=== PATIENT | female | born 1950 | race Caucasian/White ===

== ENCOUNTER 2020-08-12 14:59 | Outpatient (CLI) | payer MEDICARE, BC | END 2020-08-12 15:00 | disposition home or self-care (01) | LOC: TBSIIMAG 14:59 | PROVIDERS: ATTEND Neurological Surgery | DX: M47.26 Other spondylosis with radiculopathy, lumbar region (principal); M48.062 Spinal stenosis, lumbar region with neurogenic claudication | CPT/HCPCS: 72100; 72148 ==

== ENCOUNTER 2020-12-14 01:44 | Inpatient (IN) | payer MEDICARE, BC ==
[2020-12-14] MEDS ORDERED: methylPREDNISolone Sod Succ/PF 125 MG/2 ML VIAL ONE (02:07)
[2020-12-14] MEDS ORDERED: Magnesium 2 GM/50 ML BAG (IN WATER) ONE (02:08)
[2020-12-14] MEDS ORDERED: Albuterol Sulfate 2.5 mg/3 ml Neb ONE ×2 (02:08→16:57)
[2020-12-14 02:40] LABS: #Eosinphils 0.1 thou/uL (0.0-0.7); #Lymphocytes 1.2 thou/uL (1.20-3.40); #Monocytes 0.6 thou/uL (0.11-0.59); #Neutrophils 10.7 thou/uL (1.40-6.50); %Basophils 0.1 % (0.0-1.0); %Eosinophils 0.7 % (0.0-10.0); %Lymphocytes 9.5 % (21.0-51.0); %Neutrophils 84.7 % (42.0-75.0); Hemoglobin 9.3 g/dL (12.0-16.0); Mean Corpuscular HGB CONC 33.8 g/dL (32.0-36.0); Mean Corpuscular Hemoglobin 31.7 pg (27.0-31.0); Mean Corpuscular Volume 93.9 fL (78.0-98.0); Mean Platelet Volume 8.9 fL (7.4-10.4); Platelet Count 232 thou/uL (130-400); RBC Distribution Width 13.2 % (11.5-14.5); Red Blood Cell (RBC) Count 2.95 mill/uL (4.20-5.40); White Blood Cell (WBC) Count 12.6 thou/uL (4.8-10.8)
[2020-12-14 03:00] LABS: ALT (SGPT) 18 U/L (8-55); AST (SGOT) 12 U/L (5-34); Albumin 3.6 g/dL (3.4-4.8); Alkaline Phosphatase 105 U/L (40-110); Anion Gap 15 mmol/L (10-20); BUN (Urea Nitrogen) 94 mg/dL (9.8-20.1); Bilirubin, Total 0.5 mg/dL (0.2-1.2); Calc. Creatinine Clearance 0 mL/min (70-130); Carbon Dioxide 17 mmol/L (23-31); Chloride 108 mmol/L (98-107); Globulin 3.5 g/dL (2.4-3.5); Glucose 193 mg/dL (83-110); Potassium 5.8 mmol/L (3.5-5.1); Protein, Total 7.1 g/dL (5.8-8.1); Sodium 134 mmol/L (136-145)
[2020-12-14 03:02] LABS: Actual Bicarbonate (HCO3a) 14.9 mEq/L (22-28); Analyzer IN Cardio ER; Base Excess (BEa) -11.5 mEq/L (-2.0 to +3.0); CO2 Tension 35.6 mmHg (35.0-45.0); Calcium, Ionized (arterial) 1.18 mmol/L (1.12-1.30); Carboxyhemoglobin (COHb) 0.3 gm% (0.0-3.0); Hemoglobin (Hb) 9.5 g/dL (12.0-16.0); O2 Tension (PaO2), arterial 97.1 mmHg (> 70.0); Potassium - ABG Lab 5.41 mmol/L (3.70-5.30)
[2020-12-14 03:14] LABS: Puncture Site LRA; pH, Arterial 7.24 (7.35-7.45)
[2020-12-14 03:19] LABS: Bacteria/HPF None Seen HPF (None Seen); Bilirubin Negative (Negative); Blood, Urine Negative (Negative); Clarity Turbid (Clear); Glucose, Urine (Dipstick) Normal (Negative); Ketone, Urine Negative (Negative); Leukocyte Negative Leu/uL (Negative); Nitrite Negative (Negative); Protein, Urine (Dipstick) 50 mg/dL (Neg-Trace); RBC/HPF 0-3 HPF (0-3); Specific Gravity, Urine 1.009 (1.002-1.036); Squamous Epithelial 0-3 HPF (0-3); Urobilinogen Normal mg/dL (Less than 2)
[2020-12-14 03:58] LABS: SARS-CoV-2 NAA Rapid Test Not Detected (NotDetected)
[2020-12-14 05:42] LABS: Troponin I 0.013 ng/mL (< 0.028)
[2020-12-14] MEDS ORDERED: Furosemide 40 MG/4 ML VIAL ONE (06:36)
[2020-12-14] MEDS ORDERED: Furosemide 100 MG in Sodium Chloride 0.9% 100 ML IVPB SCH (08:45)
[2020-12-14] MEDS ORDERED: Insulin Regular 300 UNITS/3 ML VIAL IVP SCH (08:45)
[2020-12-14] MEDS ORDERED: Sodium Bicarb 50 MEQ/50 ML Abboject 8.4% SYRINGE IVP SCH (08:45)
[2020-12-14] MEDS ORDERED: Dextrose 50% Abboject 50 ML SYRINGE SLOW IVP SCH (08:45)
[2020-12-14] MEDS ORDERED: Albuterol Sulfate 1.25 MG/3 ML NEB NEB SCH (08:45)
[2020-12-14 09:00] LABS: Anion Gap 18 mmol/L (10-20); BUN (Urea Nitrogen) 98 mg/dL (9.8-20.1); Calc. Creatinine Clearance 0 mL/min (70-130); Calcium 8.8 mg/dL (7.8-10.44); Carbon Dioxide 14 mmol/L (23-31); Chloride 108 mmol/L (98-107); Glucose 320 mg/dL (83-110); Potassium 5.7 mmol/L (3.5-5.1); Sodium 134 mmol/L (136-145)
[2020-12-14] MEDS ORDERED: Apixaban 5 MG TAB PO SCH (09:00)
[2020-12-14] MEDS ORDERED: Morphine 2 MG/ML VIAL SLOW IVP PRN (09:06)
[2020-12-14] MEDS ORDERED: Acetaminophen 650 MG/20.3 ML UDCUP PO PRN (09:11)
[2020-12-14] MEDS ORDERED: clonazePAM 1 MG TAB ONE ×2 (10:55→16:33)
[2020-12-14] MEDS ORDERED: Sodium Bicarb 50 MEQ/50 ML Abboject 8.4% SYRINGE ONE (10:56)
[2020-12-14] MEDS ORDERED: Insulin Regular 300 UNITS/3 ML VIAL ONE (10:56)
[2020-12-14] MEDS ORDERED: Dextrose 50% Abboject 50 ML SYRINGE ONE (10:56)
[2020-12-14] MEDS ORDERED: Folic Acid 1 MG TAB ONE (10:56)
[2020-12-14] MEDS: Folic Acid 1 MG TAB PO SCH (11:51)
[2020-12-14] MEDS: Cyanocobalamin (Vitamin B-12) 1,000 MCG TAB PO SCH (11:52)
[2020-12-14] MEDS: clonazePAM 1 MG TAB PO SCH ×3 (11:52→20:53)
[2020-12-14] MEDS ORDERED: Morphine 2 MG/ML VIAL ONE (11:56)
[2020-12-14] MEDS: Fluticasone Propionate Nasal Spray 16 gm Bottle NASAL SCH (12:11)
[2020-12-14 15:07] LABS: Anion Gap 17 mmol/L (10-20); BUN (Urea Nitrogen) 99 mg/dL (9.8-20.1); Calc. Creatinine Clearance 0 mL/min (70-130); Carbon Dioxide 15 mmol/L (23-31); Chloride 106 mmol/L (98-107); Glucose 453 mg/dL (83-110); Potassium 5.4 mmol/L (3.5-5.1); Sodium 133 mmol/L (136-145)
[2020-12-14] MEDS ORDERED: Albuterol Sulfate 2.5 mg/3 ml Neb NEB SCH (15:15)
[2020-12-14] MEDS ORDERED: Acetaminophen 325 MG TAB PO PRN (16:16)
[2020-12-14] MEDS ORDERED: Dextrose 5% in Water 1,000 ML IV PRN (16:16)
[2020-12-14] MEDS ORDERED: Dextrose 50% Abboject 50 ML SYRINGE SLOW IVP PRN (16:16)
[2020-12-14] MEDS ORDERED: Albuterol Sulfate 2.5 mg/0.5 ml Neb ONE ×2 (16:34→16:56)
[2020-12-14 16:58] LABS: HBSAg Index 0.38 S/CO (0-0.99); Hep B Surf Ag Non-Reactive S/CO (NonReactive); Hep C IgG Ab Non-Reactive (NonReactive); Hep C Index 0.18 S/CO (0-0.79)
[2020-12-14] MEDS ORDERED: Tuberculin PPD 0.1 ML VIAL I-DERMAL SCH (17:00)
[2020-12-14 17:03] LABS: Hep B Core Total Index 10.31 S/CO (0-0.79)
[2020-12-14 17:04] LABS: Hep B Core Total Ab Reactive (NonReactive)
[2020-12-14 17:48] LABS: HBSAB Concentration 9.76 mIU/mL
[2020-12-14 17:53] LABS: Hep B Surf AB EQUIVOCAL (NonReactive)
[2020-12-14 18:29] VITALS: BMI 35.6
[2020-12-14] MEDS: Dronedarone HCl 400 MG TAB PO SCH (18:35)
[2020-12-14] MEDS: Atorvastatin Calcium 40 MG TAB PO SCH (20:53)
[2020-12-14] MEDS: HumaLOG 300 UNITS/3 ML VIAL SC PRN (21:25)
[2020-12-14 21:35] LABS: Anion Gap 16 mmol/L (10-20); BUN (Urea Nitrogen) 99 mg/dL (9.8-20.1); Calc. Creatinine Clearance 18 mL/min (70-130); Calcium 8.7 mg/dL (7.8-10.44); Carbon Dioxide 18 mmol/L (23-31); Chloride 105 mmol/L (98-107); Glucose 423 mg/dL (83-110); Potassium 4.4 mmol/L (3.5-5.1); Sodium 135 mmol/L (136-145)
[2020-12-15] MEDS: Furosemide 100 MG in Sodium Chloride 0.9% 100 ML IVPB SCH (01:53)
[2020-12-15 04:58] LABS: #Lymphocytes 0.9 thou/uL (1.20-3.40); #Monocytes 0.5 thou/uL (0.11-0.59); #Neutrophils 5.7 thou/uL (1.40-6.50); %Basophils 0.2 % (0.0-1.0); %Eosinophils 0.6 % (0.0-10.0); %Lymphocytes 12.4 % (21.0-51.0); %Monocytes 7.6 % (0.0-10.0); %Neutrophils 79.3 % (42.0-75.0); Hemoglobin 7.8 g/dL (12.0-16.0); Mean Corpuscular HGB CONC 32.5 g/dL (32.0-36.0); Mean Corpuscular Hemoglobin 29.9 pg (27.0-31.0); Mean Corpuscular Volume 92.2 fL (78.0-98.0); Platelet Count 210 thou/uL (130-400); RBC Distribution Width 12.9 % (11.5-14.5); White Blood Cell (WBC) Count 7.2 thou/uL (4.8-10.8)
[2020-12-15 05:17] LABS: Anion Gap 15 mmol/L (10-20); BUN (Urea Nitrogen) 97 mg/dL (9.8-20.1); Calc. Creatinine Clearance 20 mL/min (70-130); Calcium 8.6 mg/dL (7.8-10.44); Carbon Dioxide 20 mmol/L (23-31); Chloride 105 mmol/L (98-107); Glucose 257 mg/dL (83-110); Potassium 3.5 mmol/L (3.5-5.1); Sodium 136 mmol/L (136-145)
[2020-12-15] MEDS: Levothyroxine Sodium 50 MCG TAB PO SCH (05:50)
[2020-12-15] MEDS: HumaLOG 300 UNITS/3 ML VIAL SC PRN ×2 (06:18→22:25)
[2020-12-15] MEDS ORDERED: Heparin 10,000 UNITS/ 10 ML VIAL ONE ×3 (09:09→13:07)
[2020-12-15] MEDS: Folic Acid 1 MG TAB PO SCH (09:29)
[2020-12-15] MEDS: Cyanocobalamin (Vitamin B-12) 1,000 MCG TAB PO SCH (09:29)
[2020-12-15] MEDS: Dronedarone HCl 400 MG TAB PO SCH ×2 (09:29→18:43)
[2020-12-15] MEDS: Cholecalciferol 1,000 UNITS (25 MCG) TAB PO SCH (09:29)
[2020-12-15] MEDS: Fluticasone Propionate Nasal Spray 16 gm Bottle NASAL SCH (09:30)
[2020-12-15] MEDS: clonazePAM 1 MG TAB PO SCH ×3 (09:30→22:20)
[2020-12-15] MEDS: Propranolol 40 MG TAB PO SCH (09:33)
[2020-12-15] MEDS ORDERED: CEFAZOLIN 2 GM in Premix Bag 1 BAG IVPB SCH ×3 (09:45→13:15)
[2020-12-15] MEDS ORDERED: Fentanyl 100 MCG/2 ML VIAL ONE (11:44)
[2020-12-15] MEDS ORDERED: Propofol 500 MG/50 ML VIAL ONE (11:44)
[2020-12-15] MEDS ORDERED: Phenylephrine 10 MG/ML VIAL ONE (11:44)
[2020-12-15] MEDS ORDERED: Sodium Chloride 0.9% 20 ML ONE (11:52)
[2020-12-15] MEDS ORDERED: Lidocaine 2% PF 5 ML VIAL ONE (11:52)
[2020-12-15] MEDS ORDERED: Bupivacaine PF 0.5% 30 ML VIAL ONE (11:52)
[2020-12-15] MEDS ORDERED: EPINEPHrine 1 MG/ML AMP ONE (11:52)
[2020-12-15] MEDS ORDERED: Lidocaine 1% PF 5 ML VIAL ONE (13:02)
[2020-12-15] MEDS ORDERED: Promethazine HCl 25 MG/ML VIAL IM PRN (13:24)
[2020-12-15] MEDS ORDERED: Promethazine HCl 25 MG/ML VIAL IVPB PRN (13:24)
[2020-12-15] MEDS ORDERED: Ondansetron HCl/PF 4 MG/2 ML Vial IVP PRN (13:24)
[2020-12-15] MEDS: Atorvastatin Calcium 40 MG TAB PO SCH (22:19)
[2020-12-16] MEDS: Furosemide 100 MG in Sodium Chloride 0.9% 100 ML IVPB SCH (00:03)
[2020-12-16 05:22] LABS: #Eosinphils 0.2 thou/uL (0.0-0.7); #Lymphocytes 1.7 thou/uL (1.20-3.40); #Monocytes 0.6 thou/uL (0.11-0.59); #Neutrophils 4.8 thou/uL (1.40-6.50); %Basophils 0.3 % (0.0-1.0); %Eosinophils 2.6 % (0.0-10.0); %Lymphocytes 23.3 % (21.0-51.0); %Monocytes 8.6 % (0.0-10.0); %Neutrophils 65.1 % (42.0-75.0); Hemoglobin 8.5 g/dL (12.0-16.0); Mean Corpuscular HGB CONC 34.7 g/dL (32.0-36.0); Mean Corpuscular Hemoglobin 31.8 pg (27.0-31.0); Mean Corpuscular Volume 91.6 fL (78.0-98.0); Mean Platelet Volume 8.8 fL (7.4-10.4); Platelet Count 222 thou/uL (130-400); RBC Distribution Width 12.9 % (11.5-14.5); Red Blood Cell (RBC) Count 2.68 mill/uL (4.20-5.40); White Blood Cell (WBC) Count 7.3 thou/uL (4.8-10.8)
[2020-12-16 05:39] LABS: Anion Gap 16 mmol/L (10-20); BUN (Urea Nitrogen) 84 mg/dL (9.8-20.1); Calc. Creatinine Clearance 22 mL/min (70-130); Calcium 8.3 mg/dL (7.8-10.44); Carbon Dioxide 23 mmol/L (23-31); Chloride 104 mmol/L (98-107); Glucose 190 mg/dL (83-110); Potassium 3.5 mmol/L (3.5-5.1); Sodium 139 mmol/L (136-145)
[2020-12-16] MEDS: Levothyroxine Sodium 50 MCG TAB PO SCH (05:55)
[2020-12-16] MEDS: Cholecalciferol 1,000 UNITS (25 MCG) TAB PO SCH (09:59)
[2020-12-16] MEDS: Dronedarone HCl 400 MG TAB PO SCH ×2 (09:59→17:34)
[2020-12-16] MEDS: clonazePAM 1 MG TAB PO SCH ×3 (09:59→20:42)
[2020-12-16] MEDS: Cyanocobalamin (Vitamin B-12) 1,000 MCG TAB PO SCH (10:00)
[2020-12-16] MEDS: Folic Acid 1 MG TAB PO SCH (10:00)
[2020-12-16] MEDS: Propranolol 40 MG TAB PO SCH (10:00)
[2020-12-16] MEDS: Fluticasone Propionate Nasal Spray 16 gm Bottle NASAL SCH (10:06)
[2020-12-16] MEDS ORDERED: Nystatin Powder 15 GM BOT TOP PRN (11:28)
[2020-12-16] MEDS: HumaLOG 300 UNITS/3 ML VIAL SC PRN ×3 (11:41→20:42)
[2020-12-16] MEDS ORDERED: READ PPD TEST SITE PO SCH (17:00)
[2020-12-16] MEDS: Atorvastatin Calcium 40 MG TAB PO SCH (20:42)
[2020-12-17 05:09] LABS: #Basophils 0.1 thou/uL (0.0-0.2); #Eosinphils 0.2 thou/uL (0.0-0.7); #Lymphocytes 1.9 thou/uL (1.20-3.40); #Monocytes 0.7 thou/uL (0.11-0.59); #Neutrophils 4.1 thou/uL (1.40-6.50); %Basophils 0.8 % (0.0-1.0); %Eosinophils 2.6 % (0.0-10.0); %Lymphocytes 27.3 % (21.0-51.0); %Monocytes 9.6 % (0.0-10.0); %Neutrophils 59.8 % (42.0-75.0); Hemoglobin 8.3 g/dL (12.0-16.0); Mean Corpuscular HGB CONC 33.2 g/dL (32.0-36.0); Mean Corpuscular Hemoglobin 30.8 pg (27.0-31.0); Mean Corpuscular Volume 92.8 fL (78.0-98.0); Mean Platelet Volume 8.4 fL (7.4-10.4); Platelet Count 236 thou/uL (130-400); RBC Distribution Width 12.9 % (11.5-14.5); Red Blood Cell (RBC) Count 2.69 mill/uL (4.20-5.40); White Blood Cell (WBC) Count 6.9 thou/uL (4.8-10.8)
[2020-12-17 05:28] LABS: Anion Gap 15 mmol/L (10-20); BUN (Urea Nitrogen) 87 mg/dL (9.8-20.1); Calc. Creatinine Clearance 20 mL/min (70-130); Calcium 8.3 mg/dL (7.8-10.44); Carbon Dioxide 25 mmol/L (23-31); Chloride 103 mmol/L (98-107); Glucose 132 mg/dL (83-110); Potassium 3.1 mmol/L (3.5-5.1); Sodium 140 mmol/L (136-145)
[2020-12-17] MEDS: Levothyroxine Sodium 50 MCG TAB PO SCH (06:12)
[2020-12-17] MEDS ORDERED: Heparin 10,000 UNITS/ 10 ML VIAL ONE (09:15)
[2020-12-17] MEDS: Lantus 1000 UNITS/10 ML VIAL SC SCH (10:37)
[2020-12-17] MEDS: clonazePAM 1 MG TAB PO SCH ×3 (10:56→21:32)
[2020-12-17] MEDS: Folic Acid 1 MG TAB PO SCH (10:56)
[2020-12-17] MEDS: Cholecalciferol 1,000 UNITS (25 MCG) TAB PO SCH (10:59)
[2020-12-17] MEDS: Cyanocobalamin (Vitamin B-12) 1,000 MCG TAB PO SCH (11:02)
[2020-12-17] MEDS: Propranolol 40 MG TAB PO SCH (11:02)
[2020-12-17] MEDS: Fluticasone Propionate Nasal Spray 16 gm Bottle NASAL SCH (11:02)
[2020-12-17] MEDS: Dronedarone HCl 400 MG TAB PO SCH ×2 (11:03→17:58)
[2020-12-17] MEDS ORDERED: Protamine Sulfate 50 MG/5 ML VIAL ONE (16:26)
[2020-12-17] MEDS ORDERED: Lidocaine 1% w/Epinephrine 1:100K 20 ML VIAL ONE (16:26)
[2020-12-17] MEDS ORDERED: Heparin 5,000 UNITS/ML VIAL ONE (16:26)
[2020-12-17] MEDS ORDERED: Bupivacaine PF 0.5% 30 ML VIAL ONE ×2 (16:26)
[2020-12-17] MEDS ORDERED: PROPOFOL 200 MG/20 ML VIAL ONE (17:03)
[2020-12-17] MEDS ORDERED: traMADol HCl 50 MG TAB PO PRN (18:12)
[2020-12-17] MEDS: HumaLOG 300 UNITS/3 ML VIAL SC PRN (21:32)
[2020-12-17] MEDS: Atorvastatin Calcium 40 MG TAB PO SCH (21:32)
[2020-12-18 05:08] LABS: #Eosinphils 0.2 thou/uL (0.0-0.7); #Lymphocytes 1.8 thou/uL (1.20-3.40); #Monocytes 0.7 thou/uL (0.11-0.59); #Neutrophils 6.3 thou/uL (1.40-6.50); %Basophils 0.2 % (0.0-1.0); %Eosinophils 2.7 % (0.0-10.0); %Lymphocytes 20.2 % (21.0-51.0); %Monocytes 7.4 % (0.0-10.0); %Neutrophils 69.6 % (42.0-75.0); Hemoglobin 9.2 g/dL (12.0-16.0); Mean Corpuscular Hemoglobin 30.9 pg (27.0-31.0); Mean Corpuscular Volume 90.9 fL (78.0-98.0); Mean Platelet Volume 8.1 fL (7.4-10.4); Platelet Count 231 thou/uL (130-400); RBC Distribution Width 12.6 % (11.5-14.5); Red Blood Cell (RBC) Count 2.96 mill/uL (4.20-5.40); White Blood Cell (WBC) Count 9.1 thou/uL (4.8-10.8)
[2020-12-18] MEDS: Levothyroxine Sodium 50 MCG TAB PO SCH (05:25)
[2020-12-18 05:31] LABS: Anion Gap 12 mmol/L (10-20); BUN (Urea Nitrogen) 46 mg/dL (9.8-20.1); Calc. Creatinine Clearance 26 mL/min (70-130); Calcium 8.6 mg/dL (7.8-10.44); Carbon Dioxide 28 mmol/L (23-31); Chloride 102 mmol/L (98-107); Glucose 166 mg/dL (83-110); Potassium 3.3 mmol/L (3.5-5.1); Sodium 139 mmol/L (136-145)
[2020-12-18] MEDS: clonazePAM 1 MG TAB PO SCH (09:17)
[2020-12-18] MEDS: Cyanocobalamin (Vitamin B-12) 1,000 MCG TAB PO SCH (09:18)
[2020-12-18] MEDS: Folic Acid 1 MG TAB PO SCH (09:18)
[2020-12-18] MEDS: Propranolol 40 MG TAB PO SCH (09:18)
[2020-12-18] MEDS: Lantus 1000 UNITS/10 ML VIAL SC SCH (09:19)
[2020-12-18] MEDS: Dronedarone HCl 400 MG TAB PO SCH (09:20)
[2020-12-18] MEDS: Cholecalciferol 1,000 UNITS (25 MCG) TAB PO SCH (09:20)
[2020-12-18] MEDS: Fluticasone Propionate Nasal Spray 16 gm Bottle NASAL SCH (09:21)
[2020-12-18 11:42] VITALS: TEMP 98.3
[2020-12-18 11:58] VITALS: BP 135/53
[2020-12-18] MEDS ORDERED: Potassium Chloride 20 MEQ TAB PO SCH (12:15)
[2020-12-18] MEDS: HumaLOG 300 UNITS/3 ML VIAL SC PRN (12:32)
== END 2020-12-18 14:20 | DRG 673 ==
LOC: ERS 01:44 → ERHOLD 04:28 → OBSVTOIN 16:16 → 2SE 18:05
PROVIDERS: ADMIT Internal Medicine; ATTEND Internal Medicine
PROC: 0JH60XZ Insertion of Tunneled Vascular Access Device into Chest Subcutaneous Tissue and Fascia, Open Approach (ICD-10-PCS; principal; 2020-12-15)
PROC: 02HV33Z Insertion of Infusion Device into Superior Vena Cava, Percutaneous Approach (ICD-10-PCS; 2020-12-15)
PROC: B5181ZA Fluoroscopy of Superior Vena Cava using Low Osmolar Contrast, Guidance (ICD-10-PCS; 2020-12-15)
PROC: B548ZZA Ultrasonography of Superior Vena Cava, Guidance (ICD-10-PCS; 2020-12-15)
PROC: 031C0ZF Bypass Left Radial Artery to Lower Arm Vein, Open Approach (ICD-10-PCS; 2020-12-17)
PROC: 5A1D70Z Performance of Urinary Filtration, Intermittent, Less than 6 Hours Per Day (ICD-10-PCS; 2020-12-17)
DX: N17.9 Acute kidney failure, unspecified (principal); J96.01 Acute respiratory failure with hypoxia; E87.2 Acidosis; I48.20 Chronic atrial fibrillation, unspecified; I12.0 Hypertensive chronic kidney disease with stage 5 chronic kidney disease or end stage renal disease; E87.1 Hypo-osmolality and hyponatremia; E78.5 Hyperlipidemia, unspecified; E87.70 Fluid overload, unspecified; E87.5 Hyperkalemia; E11.69 Type 2 diabetes mellitus with other specified complication; N18.6 End stage renal disease; G89.29 Other chronic pain; E11.22 Type 2 diabetes mellitus with diabetic chronic kidney disease; G25.71 Drug induced akathisia; F32.9 Major depressive disorder, single episode, unspecified; Z20.822 Contact with and (suspected) exposure to COVID-19; E66.01 Morbid (severe) obesity due to excess calories; E87.6 Hypokalemia; Z90.49 Acquired absence of other specified parts of digestive tract; Z98.1 Arthrodesis status; Z98.49 Cataract extraction status, unspecified eye; Z88.8 Allergy status to other drugs, medicaments and biological substances; Z68.35 Body mass index [BMI] 35.0-35.9, adult; Z99.2 Dependence on renal dialysis; Z79.01 Long term (current) use of anticoagulants
CPT/HCPCS: 36415; 36416; 36600; 51701; 71045; 80048; 80053; 81003; 81015; 82805; 83605; 83880; 84484; 85025; 86580; 86704; 86706; 86803; 87040; 87340; 93005; 93306; 93970; 94660; 96365; 96367; 96375; C1751; C1752; G0378; J0171; J0690; J1642; J1644; J1815; J1940; J1956; J2001; J2270; J2370; J2704; J2720; J2930; J3010; J3475; J3490; J7611; J7620; S0020; U0002; U0005

== ENCOUNTER 2021-04-17 20:10 | Inpatient (IN) | payer MEDICARE, BC ==
[2021-04-17] MEDS ORDERED: Dextrose 50% Abboject 50 ML SYRINGE ONE (20:18)
[2021-04-17 20:43] LABS: Actual Bicarbonate (HCO3a) 25.7 mEq/L (22-28); Analyzer IN Cardio ER; Base Excess (BEa) 1.7 mEq/L (-2.0 to +3.0); CO2 Tension 38.6 mmHg (35.0-45.0); Calcium, Ionized (arterial) 1.11 mmol/L (1.12-1.30); Carboxyhemoglobin (COHb) 0.4 gm% (0.0-3.0); Hemoglobin (Hb) 12.2 g/dL (12.0-16.0); O2 Tension (PaO2), arterial 169.5 mmHg (> 70.0); Potassium - ABG Lab 4.57 mmol/L (3.70-5.30); pH, Arterial 7.44 (7.35-7.45)
[2021-04-17 20:47] LABS: Puncture Site RRA
[2021-04-17 21:24] LABS: #Eosinphils 0.1 thou/uL (0.0-0.7); #Monocytes 0.4 thou/uL (0.11-0.59); #Neutrophils 5.5 thou/uL (1.40-6.50); %Basophils 0.3 % (0.0-1.0); %Eosinophils 1.4 % (0.0-10.0); %Lymphocytes 14.4 % (21.0-51.0); %Monocytes 5.6 % (0.0-10.0); %Neutrophils 78.3 % (42.0-75.0); Hemoglobin 11.5 g/dL (12.0-16.0); Mean Corpuscular HGB CONC 32.2 g/dL (32.0-36.0); Mean Corpuscular Hemoglobin 31.5 pg (27.0-31.0); Mean Corpuscular Volume 97.6 fL (78.0-98.0); Mean Platelet Volume 8.7 fL (7.4-10.4); Platelet Count 167 thou/uL (130-400); RBC Distribution Width 15.1 % (11.5-14.5); Red Blood Cell (RBC) Count 3.65 mill/uL (4.20-5.40); White Blood Cell (WBC) Count 7.1 thou/uL (4.8-10.8)
[2021-04-17 22:09] LABS: ALT (SGPT) 29 U/L (8-55); AST (SGOT) 29 U/L (5-34); Albumin 3.2 g/dL (3.4-4.8); Alkaline Phosphatase 142 U/L (40-110); Anion Gap 16 mmol/L (10-20); BUN (Urea Nitrogen) 35 mg/dL (9.8-20.1); Bilirubin, Total 0.8 mg/dL (0.2-1.2); Calc. Creatinine Clearance 0 mL/min (70-130); Calcium 8.7 mg/dL (7.8-10.44); Carbon Dioxide 26 mmol/L (23-31); Chloride 102 mmol/L (98-107); Globulin 3.4 g/dL (2.4-3.5); Glucose 312 mg/dL (83-110); Potassium 4.7 mmol/L (3.5-5.1); Protein, Total 6.6 g/dL (5.8-8.1); Sodium 139 mmol/L (136-145)
[2021-04-18] MEDS ORDERED: Ondansetron PF 4 MG/2 ML Vial IVP PRN (02:00)
[2021-04-18] MEDS ORDERED: Ondansetron ODT 4 MG TAB SL PRN (02:00)
[2021-04-18] MEDS ORDERED: Acetaminophen 325 MG TAB PO PRN (02:00)
[2021-04-18 02:32] VITALS: BMI 33.0
[2021-04-18] MEDS ORDERED: HumaLOG 300 UNITS/3 ML VIAL SC PRN (03:51)
[2021-04-18] MEDS ORDERED: Dextrose 5% in Water 1,000 ML IV PRN (03:51)
[2021-04-18] MEDS ORDERED: Dextrose 50% Abboject 50 ML SYRINGE SLOW IVP PRN (03:51)
[2021-04-18] MEDS ORDERED: Heparin 10,000 UNITS/ 10 ML VIAL ONE (09:22)
[2021-04-18 13:15] LABS: HBSAg Index 0.25 S/CO (0-0.99); Hep B Surf Ag Non-Reactive S/CO (NonReactive)
[2021-04-18 14:00] LABS: HBSAB Concentration 8.93 mIU/mL
[2021-04-18 14:01] LABS: Hep B Surf AB EQUIVOCAL (NonReactive)
[2021-04-18 18:17] LABS: SARS-CoV-2 PCR by NAA Not Detected (NotDetected)
[2021-04-18] MEDS ORDERED: clonazePAM 1 MG TAB PO SCH (21:00)
[2021-04-18] MEDS: Apixaban 5 MG TAB PO SCH (21:53)
[2021-04-19 04:27] LABS: Anion Gap 11 mmol/L (10-20); BUN (Urea Nitrogen) 16 mg/dL (9.8-20.1); Calc. Creatinine Clearance 36 mL/min (70-130); Calcium 8.6 mg/dL (7.8-10.44); Carbon Dioxide 30 mmol/L (23-31); Chloride 99 mmol/L (98-107); Glucose 123 mg/dL (83-110); Potassium 4.4 mmol/L (3.5-5.1); Sodium 136 mmol/L (136-145)
[2021-04-19] MEDS ORDERED: Non-Formulary Item 1 EACH (Albuterol Sulfate [Albuterol Sulfate Hfa] 8.5 GM Hfa.Aer.Ad) IH PRN (07:22)
[2021-04-19] MEDS ORDERED: Albuterol 200 PUFF (6.7GM INHALER) INH PRN (07:49)
[2021-04-19 10:57] LABS: Mean Corpuscular HGB CONC 32.4 g/dL (32.0-36.0); Mean Corpuscular Hemoglobin 31.3 pg (27.0-31.0); Mean Corpuscular Volume 96.9 fL (78.0-98.0); RBC Distribution Width 14.7 % (11.5-14.5); Red Blood Cell (RBC) Count 3.52 mill/uL (4.20-5.40)
[2021-04-19 11:23] LABS: Anisocytosis SLIGHT = 6-15 cells (100X) (0-5/hpf); Lymphocytes 32 % (21-51); MDiff Complete? YES; Mean Platelet Volume 8.6 fL (7.4-10.4); Monocytes 2 % (0-10); Neutrophil 66 % (42-75); Platelet Count 159 thou/uL (130-400); Platelet Morphology Comment Appears Adequate; Polychromasia SLIGHT = 2-3 cells (100X) (0-2/hpf); White Blood Cell (WBC) Count 4.1 thou/uL (4.8-10.8)
[2021-04-19] MEDS: Dronedarone HCl 400 MG TAB PO SCH ×2 (14:42→17:02)
[2021-04-19] MEDS: Apixaban 5 MG TAB PO SCH ×2 (14:43→20:46)
[2021-04-19] MEDS: Cholecalciferol 1,000 UNITS (25 MCG) TAB PO SCH (14:43)
[2021-04-19] MEDS: Cyanocobalamin (Vitamin B-12) 1,000 MCG TAB PO SCH (14:44)
[2021-04-19] MEDS: Folic Acid 1 MG TAB PO SCH (14:44)
[2021-04-19] MEDS: clonazePAM 1 MG TAB PO PRN (17:06)
[2021-04-19] MEDS: HumaLOG 300 UNITS/3 ML VIAL SC PRN (17:31)
[2021-04-19] MEDS ORDERED: Rosuvastatin 20 MG TAB PO SCH (21:00)
[2021-04-20] MEDS: clonazePAM 1 MG TAB PO PRN (01:05)
[2021-04-20] MEDS ORDERED: Levothyroxine Sodium 50 MCG TAB PO SCH (06:00)
[2021-04-20] MEDS ORDERED: Propranolol 40 MG TAB PO SCH (09:00)
[2021-04-20] MEDS ORDERED: Propranolol HCl 20 MG TAB PO SCH (09:00)
[2021-04-20] MEDS ORDERED: Heparin 10,000 UNITS/ 10 ML VIAL ONE (09:15)
[2021-04-20] MEDS: Dronedarone HCl 400 MG TAB PO SCH ×2 (11:44→17:26)
[2021-04-20] MEDS: Folic Acid 1 MG TAB PO SCH (11:56)
[2021-04-20] MEDS: Cholecalciferol 1,000 UNITS (25 MCG) TAB PO SCH (11:56)
[2021-04-20] MEDS: Apixaban 5 MG TAB PO SCH (11:56)
[2021-04-20] MEDS: Cyanocobalamin (Vitamin B-12) 1,000 MCG TAB PO SCH (11:56)
[2021-04-20 15:46] VITALS: BP 115/82; TEMP 97.7
[2021-04-20] MEDS: HumaLOG 300 UNITS/3 ML VIAL SC PRN (17:24)
[2021-04-20] MEDS ORDERED: Non-Formulary Item 1 EACH (Atorvastatin Calcium [Atorvastatin Calcium] 80 MG Tablet) PO SCH (21:00)
[2021-04-20] MEDS ORDERED: Atorvastatin Calcium 40 MG TAB PO SCH (21:00)
== END 2021-04-20 18:05 | disposition home or self-care (01) | DRG 640 ==
LOC: ERS 20:10 → 2NO 04-18 00:47
PROVIDERS: ADMIT Student in an Organized Health Care Education/Training Program; ATTEND Internal Medicine
PROC: 5A1D70Z Performance of Urinary Filtration, Intermittent, Less than 6 Hours Per Day (ICD-10-PCS; principal; 2021-04-18)
PROC: 5A09357 Assistance with Respiratory Ventilation, Less than 24 Consecutive Hours, Continuous Positive Airway Pressure (ICD-10-PCS; 2021-04-18)
DX: E87.70 Fluid overload, unspecified (principal); Z20.822 Contact with and (suspected) exposure to COVID-19; N18.6 End stage renal disease; J96.01 Acute respiratory failure with hypoxia; I12.0 Hypertensive chronic kidney disease with stage 5 chronic kidney disease or end stage renal disease; I48.20 Chronic atrial fibrillation, unspecified; E11.22 Type 2 diabetes mellitus with diabetic chronic kidney disease; E03.9 Hypothyroidism, unspecified; E78.5 Hyperlipidemia, unspecified; J45.909 Unspecified asthma, uncomplicated; R25.1 Tremor, unspecified; Z99.2 Dependence on renal dialysis; Z88.8 Allergy status to other drugs, medicaments and biological substances; Z79.890 Hormone replacement therapy; Z98.49 Cataract extraction status, unspecified eye; Z90.49 Acquired absence of other specified parts of digestive tract; Z79.51 Long term (current) use of inhaled steroids; Z79.01 Long term (current) use of anticoagulants; Z79.4 Long term (current) use of insulin; Z98.890 Other specified postprocedural states
CPT/HCPCS: 36415; 36416; 36600; 71045; 80048; 80053; 82805; 83880; 84484; 85025; 86706; 87340; 90935; 93005; 94660; 96374; G0257; J1644; J1815; U0003; U0005

== ENCOUNTER 2021-05-25 12:25 | Emergency (ER) | payer OTHER, MEDICARE, BC | END 2021-05-25 16:25 | disposition home or self-care (01) | LOC: ERS 12:25 | DX: S09.90XA Unspecified injury of head, initial encounter (principal); S05.11XA Contusion of eyeball and orbital tissues, right eye, initial encounter; E11.9 Type 2 diabetes mellitus without complications; E03.9 Hypothyroidism, unspecified; E78.5 Hyperlipidemia, unspecified; J45.909 Unspecified asthma, uncomplicated; I12.0 Hypertensive chronic kidney disease with stage 5 chronic kidney disease or end stage renal disease; N18.6 End stage renal disease; W01.0XXA Fall on same level from slipping, tripping and stumbling without subsequent striking against object, initial encounter | CPT/HCPCS: 70450; 70486; 72125 ==

== ENCOUNTER 2021-07-16 12:08 | Outpatient (CLI) | payer MEDICARE, BC | END 2021-07-16 12:09 | disposition home or self-care (01) | LOC: ULT 12:08 | PROVIDERS: ATTEND Family Medicine | DX: M79.605 Pain in left leg (principal) ==

== ENCOUNTER 2021-12-25 10:30 | Outpatient (CLI) | payer MEDICARE, BC | END 2021-12-25 10:31 | disposition home or self-care (01) | LOC: LABBT 10:30 | PROVIDERS: ATTEND Internal Medicine Gastroenterology | DX: Z20.822 Contact with and (suspected) exposure to COVID-19 (principal) | CPT/HCPCS: 87811 ==

== ENCOUNTER 2023-02-24 09:57 | Inpatient (IN) | payer MEDICARE, BC ==
[~2023-02-24 09:57] MED LIST: Heparin 10,000 UNITS/ 10 ML VIAL ONE
[2023-02-24 11:05] LABS: #Monocytes 0.4 thou/uL (0.11-0.59); #Neutrophils 6.9 thou/uL (1.40-6.50); %Basophils 0.1 % (0.0-1.0); %Eosinophils 0.1 % (0.0-10.0); %Lymphocytes 6.8 % (21.0-51.0); %Monocytes 4.8 % (0.0-10.0); %Neutrophils 87.7 % (42.0-75.0); Hematocrit 29.7 % (36.0-47.0); Hemoglobin 9.6 g/dL (12.0-16.0); Mean Corpuscular HGB CONC 32.3 g/dL (32.0-36.0); Mean Corpuscular Hemoglobin 33.4 pg (27.0-31.0); Mean Corpuscular Volume 103.5 fl (78.0-98.0); Platelet Count 144 10x3/uL (130-400); RBC Distribution Width 13.9 % (11.5-14.5); Red Blood Cell (RBC) Count 2.87 mill/uL (4.20-5.40); White Blood Cell (WBC) Count 7.9 10x3/uL (4.8-10.8)
[2023-02-24 11:30] LABS: Troponin I 0.137 ng/mL (< 0.028)
[2023-02-24 11:31] LABS: ALT (SGPT) 27 U/L (8-55); AST (SGOT) 28 U/L (5-34); Albumin 4.1 g/dL (3.4-4.8); Alkaline Phosphatase 97 U/L (40-110); Anion Gap 18 mmol/L (10-20); BUN (Urea Nitrogen) 77 mg/dL (9.8-20.1); Bilirubin, Total 0.6 mg/dL (0.2-1.2); CK (CPK) 145 U/L (29-168); Calc. Creatinine Clearance 0 mL/min (70-130); Calcium 8.8 mg/dL (7.8-10.44); Carbon Dioxide 26 mmol/L (23-31); Chloride 101 mmol/L (98-107); Estimated GFR 12; Globulin 2.2 g/dL (2.4-3.5); Glucose 222 mg/dL (83-110); Lipase 30 U/L (8-78); Magnesium 1.9 mg/dL (1.6-2.6); Potassium 4.2 mmol/L (3.5-5.1); Protein, Total 6.3 g/dL (5.8-8.1); Sodium 141 mmol/L (136-145)
[2023-02-24] MEDS ORDERED: Heparin 10,000 UNITS/ 10 ML VIAL SLOW IVP PRN ×2 (16:46→17:00)
[2023-02-24 16:47] VITALS: BMI 40.8
[2023-02-24] MEDS ORDERED: Acetaminophen 650 MG Suppository PR PRN (17:00)
[2023-02-24] MEDS ORDERED: Dextrose 5% in Water 1,000 ML IV PRN (17:07)
[2023-02-24] MEDS ORDERED: Glucagon 1 MG/ML KIT IM PRN (17:07)
[2023-02-24] MEDS ORDERED: Dextrose 50% Abboject 50 ML SYRINGE SLOW IVP PRN (17:07)
[2023-02-24 18:38] LABS: Iron 36 ug/dL (50-170); Iron Binding Capacity, Total 333 mcg/dL (265-497)
[2023-02-24] MEDS ORDERED: HYDROcodone/Acetaminophen 5/325 mg Tablet PO PRN (19:04)
[2023-02-24] MEDS ORDERED: Apixaban 5 MG TAB PO SCH (21:00)
[2023-02-24] MEDS ORDERED: Folic Acid/Vit B Comp W-C PO SCH (21:00)
[2023-02-24] MEDS: Atorvastatin Calcium 40 MG TAB PO SCH (22:49)
[2023-02-24 23:01] LABS: Troponin I 0.211 ng/mL (< 0.028)
[2023-02-25 01:10] LABS: Troponin I 0.178 ng/mL (< 0.028)
[2023-02-25 04:32] LABS: #Eosinphils 0.1 thou/uL (0.0-0.7); #Monocytes 0.4 thou/uL (0.11-0.59); #Neutrophils 4.1 thou/uL (1.40-6.50); %Basophils 0.2 % (0.0-1.0); %Eosinophils 1.1 % (0.0-10.0); %Lymphocytes 12.6 % (21.0-51.0); %Monocytes 6.9 % (0.0-10.0); Hematocrit 26.8 % (36.0-47.0); Hemoglobin 8.7 g/dL (12.0-16.0); Mean Corpuscular HGB CONC 32.5 g/dL (32.0-36.0); Mean Corpuscular Hemoglobin 32.8 pg (27.0-31.0); Mean Corpuscular Volume 101.1 fl (78.0-98.0); Mean Platelet Volume 10.5 fL (7.4-10.4); Platelet Count 147 10x3/uL (130-400); Red Blood Cell (RBC) Count 2.65 mill/uL (4.20-5.40); White Blood Cell (WBC) Count 5.2 10x3/uL (4.8-10.8)
[2023-02-25 05:08] LABS: Anion Gap 14 mmol/L (10-20); BUN (Urea Nitrogen) 33 mg/dL (9.8-20.1); CK (CPK) 119 U/L (29-168); Calc. Creatinine Clearance 35 mL/min (70-130); Calcium 9.1 mg/dL (7.8-10.44); Carbon Dioxide 29 mmol/L (23-31); Chloride 100 mmol/L (98-107); Estimated GFR 24; Iron 40 ug/dL (50-170); Iron Binding Capacity, Total 330 mcg/dL (265-497); Potassium 3.5 mmol/L (3.5-5.1); Sodium 139 mmol/L (136-145)
[2023-02-25 05:15] LABS: Glucose 43 mg/dL (83-110)
[2023-02-25] MEDS ORDERED: Furosemide 100 MG/10 ML VIAL SLOW IVP SCH (06:00)
[2023-02-25] MEDS: Levothyroxine Sodium 50 MCG TAB PO SCH (06:35)
[2023-02-25] MEDS ORDERED: Apixaban 2.5 MG TAB PO SCH ×2 (09:00)
[2023-02-25] MEDS ORDERED: Iron, Sodium Ferric Gluconate 250 MG in Sodium Chloride 0.9% 250 ML 250 ML IVPB SCH (09:15)
[2023-02-25] MEDS: Insulin Glargine 30 UNITS/0.3 ML VIAL SC SCH (09:28)
[2023-02-25] MEDS: Dronedarone HCl 400 MG TAB PO SCH ×3 (09:28→16:26)
[2023-02-25] MEDS: Apixaban 5 MG TAB PO SCH ×2 (09:29→21:59)
[2023-02-25] MEDS: Folic Acid 1 MG TAB PO SCH (09:29)
[2023-02-25] MEDS: Insulin Regular 300 UNITS/3 ML VIAL SC PRN (11:29)
[2023-02-25] MEDS: Furosemide 100 MG/10 ML VIAL SLOW IVP SCH (16:26)
[2023-02-25] MEDS ORDERED: Ondansetron PF 4 MG/2 ML Vial IVP PRN (19:19)
[2023-02-25] MEDS: Atorvastatin Calcium 40 MG TAB PO SCH (20:38)
[2023-02-26 04:19] LABS: #Eosinphils 0.1 thou/uL (0.0-0.7); #Monocytes 0.4 thou/uL (0.11-0.59); #Neutrophils 3.7 thou/uL (1.40-6.50); %Basophils 0.4 % (0.0-1.0); %Eosinophils 1.6 % (0.0-10.0); %Lymphocytes 18.4 % (21.0-51.0); %Monocytes 7.6 % (0.0-10.0); %Neutrophils 71.6 % (42.0-75.0); Hematocrit 25.4 % (36.0-47.0); Hemoglobin 8.2 g/dL (12.0-16.0); Mean Corpuscular HGB CONC 32.3 g/dL (32.0-36.0); Mean Corpuscular Hemoglobin 33.7 pg (27.0-31.0); Mean Platelet Volume 10.5 fL (7.4-10.4); Platelet Count 142 10x3/uL (130-400); RBC Distribution Width 14.2 % (11.5-14.5); Red Blood Cell (RBC) Count 2.43 mill/uL (4.20-5.40); White Blood Cell (WBC) Count 5.1 10x3/uL (4.8-10.8)
[2023-02-26 04:35] LABS: Mean Corpuscular Volume 104.5 fl (78.0-98.0)
[2023-02-26 05:03] LABS: Anion Gap 16 mmol/L (10-20); BUN (Urea Nitrogen) 53 mg/dL (9.8-20.1); Calc. Creatinine Clearance 21 mL/min (70-130); Calcium 8.9 mg/dL (7.8-10.44); Carbon Dioxide 26 mmol/L (23-31); Chloride 100 mmol/L (98-107); Estimated GFR 13; Glucose 130 mg/dL (83-110); Potassium 4.6 mmol/L (3.5-5.1); Sodium 137 mmol/L (136-145)
[2023-02-26] MEDS: Furosemide 100 MG/10 ML VIAL SLOW IVP SCH ×3 (06:34→14:13)
[2023-02-26] MEDS: Levothyroxine Sodium 50 MCG TAB PO SCH (06:35)
[2023-02-26] MEDS ORDERED: traMADol HCl 50 MG TAB PO PRN (14:08)
[2023-02-26] MEDS: Dronedarone HCl 400 MG TAB PO SCH ×2 (14:12→18:10)
[2023-02-26] MEDS: Folic Acid 1 MG TAB PO SCH (14:12)
[2023-02-26] MEDS: Apixaban 5 MG TAB PO SCH ×2 (14:12→20:11)
[2023-02-26] MEDS: Acetaminophen 325 MG TAB PO PRN (14:12)
[2023-02-26] MEDS: Atorvastatin Calcium 40 MG TAB PO SCH (20:11)
[2023-02-26] MEDS: Insulin Regular 300 UNITS/3 ML VIAL SC PRN (22:54)
[2023-02-27] MEDS: Furosemide 100 MG/10 ML VIAL SLOW IVP SCH ×2 (06:21→15:50)
[2023-02-27] MEDS: Insulin Regular 300 UNITS/3 ML VIAL SC PRN ×2 (06:21→21:59)
[2023-02-27] MEDS: Levothyroxine Sodium 50 MCG TAB PO SCH (06:22)
[2023-02-27] MEDS ORDERED: FLU VACC QS2023(65UP)/MF59C/PF 60 MCG/0.5 ML SYRINGE IM ONE (09:00)
[2023-02-27] MEDS: Cholestyramine/Aspartame 4 gm Packet PO SCH (09:42)
[2023-02-27] MEDS: Apixaban 5 MG TAB PO SCH ×2 (09:42→20:18)
[2023-02-27] MEDS: Dronedarone HCl 400 MG TAB PO SCH ×2 (09:42→16:49)
[2023-02-27] MEDS: Insulin Glargine 30 UNITS/0.3 ML VIAL SC SCH (09:42)
[2023-02-27] MEDS: Folic Acid 1 MG TAB PO SCH (09:42)
[2023-02-27 12:29] LABS: #Eosinphils 0.1 thou/uL (0.0-0.7); #Monocytes 0.4 thou/uL (0.11-0.59); #Neutrophils 4.1 thou/uL (1.40-6.50); %Basophils 0.4 % (0.0-1.0); %Eosinophils 1.3 % (0.0-10.0); %Lymphocytes 13.6 % (21.0-51.0); %Monocytes 7.1 % (0.0-10.0); %Neutrophils 77.4 % (42.0-75.0); Hematocrit 28.2 % (36.0-47.0); Hemoglobin 8.9 g/dL (12.0-16.0); Mean Corpuscular HGB CONC 31.6 g/dL (32.0-36.0); Mean Corpuscular Hemoglobin 33.1 pg (27.0-31.0); Mean Corpuscular Volume 104.8 fl (78.0-98.0); Platelet Count 145 10x3/uL (130-400); RBC Distribution Width 14.1 % (11.5-14.5); Red Blood Cell (RBC) Count 2.69 mill/uL (4.20-5.40); White Blood Cell (WBC) Count 5.4 10x3/uL (4.8-10.8)
[2023-02-27 12:49] LABS: Anion Gap 16 mmol/L (10-20); BUN (Urea Nitrogen) 44 mg/dL (9.8-20.1); Calc. Creatinine Clearance 25 mL/min (70-130); Calcium 8.7 mg/dL (7.8-10.44); Carbon Dioxide 27 mmol/L (23-31); Chloride 99 mmol/L (98-107); Estimated GFR 16; Glucose 125 mg/dL (83-110); Potassium 4.2 mmol/L (3.5-5.1); Sodium 138 mmol/L (136-145)
[2023-02-27] MEDS ORDERED: Furosemide 40 MG/4 ML VIAL SLOW IVP SCH (15:15)
[2023-02-27] MEDS: Atorvastatin Calcium 40 MG TAB PO SCH (20:18)
[2023-02-28] MEDS: Acetaminophen 325 MG TAB PO PRN ×2 (00:31→20:52)
[2023-02-28] MEDS: Simethicone Chewable 80 MG TAB PO PRN ×2 (00:32→20:52)
[2023-02-28] MEDS: Levothyroxine Sodium 50 MCG TAB PO SCH (05:09)
[2023-02-28] MEDS: Insulin Regular 300 UNITS/3 ML VIAL SC PRN ×3 (05:12→17:10)
[2023-02-28] MEDS ORDERED: Furosemide 40 MG/4 ML VIAL SLOW IVP SCH (06:00)
[2023-02-28 07:05] LABS: #Eosinphils 0.1 thou/uL (0.0-0.7); #Monocytes 0.4 thou/uL (0.11-0.59); #Neutrophils 3.9 thou/uL (1.40-6.50); %Basophils 0.4 % (0.0-1.0); %Eosinophils 1.5 % (0.0-10.0); %Lymphocytes 15.4 % (21.0-51.0); %Monocytes 7.4 % (0.0-10.0); %Neutrophils 75.1 % (42.0-75.0); Hematocrit 27.1 % (36.0-47.0); Hemoglobin 8.6 g/dL (12.0-16.0); Mean Corpuscular HGB CONC 31.7 g/dL (32.0-36.0); Mean Corpuscular Hemoglobin 33.2 pg (27.0-31.0); Mean Corpuscular Volume 104.6 fl (78.0-98.0); Mean Platelet Volume 10.3 fL (7.4-10.4); Platelet Count 142 10x3/uL (130-400); Red Blood Cell (RBC) Count 2.59 mill/uL (4.20-5.40); White Blood Cell (WBC) Count 5.3 10x3/uL (4.8-10.8)
[2023-02-28 07:28] LABS: Anion Gap 16 mmol/L (10-20); BUN (Urea Nitrogen) 59 mg/dL (9.8-20.1); Calc. Creatinine Clearance 21 mL/min (70-130); Calcium 8.8 mg/dL (7.8-10.44); Carbon Dioxide 26 mmol/L (23-31); Chloride 100 mmol/L (98-107); Estimated GFR 13; Glucose 167 mg/dL (83-110); Potassium 4.3 mmol/L (3.5-5.1); Sodium 138 mmol/L (136-145)
[2023-02-28] MEDS: Folic Acid 1 MG TAB PO SCH (09:43)
[2023-02-28] MEDS: Gabapentin 100 MG CAP PO SCH (09:43)
[2023-02-28] MEDS: Apixaban 5 MG TAB PO SCH ×2 (09:43→20:51)
[2023-02-28] MEDS: Insulin Glargine 30 UNITS/0.3 ML VIAL SC SCH (09:44)
[2023-02-28] MEDS: Dronedarone HCl 400 MG TAB PO SCH ×2 (09:44→17:07)
[2023-02-28] MEDS: Cholestyramine/Aspartame 4 gm Packet PO SCH (11:10)
[2023-02-28] MEDS: Atorvastatin Calcium 40 MG TAB PO SCH (20:51)
[2023-02-28] MEDS ORDERED: Epoetin (ESRD) 10,000 UNITS/ML VIAL SC SCH (23:00)
[2023-03-01] MEDS: Acetaminophen 325 MG TAB PO PRN ×2 (03:50→14:37)
[2023-03-01] MEDS: Levothyroxine Sodium 50 MCG TAB PO SCH (06:24)
[2023-03-01] MEDS: Insulin Regular 300 UNITS/3 ML VIAL SC PRN ×2 (06:35→17:47)
[2023-03-01] MEDS ORDERED: Heparin 10,000 UNITS/ 10 ML VIAL ONE (08:15)
[2023-03-01] MEDS: Dronedarone HCl 400 MG TAB PO SCH ×2 (11:53→17:47)
[2023-03-01] MEDS: Folic Acid 1 MG TAB PO SCH (11:53)
[2023-03-01] MEDS: Furosemide 40 MG TAB PO SCH (11:54)
[2023-03-01] MEDS: Insulin Glargine 30 UNITS/0.3 ML VIAL SC SCH (11:54)
[2023-03-01] MEDS: Cholestyramine/Aspartame 4 gm Packet PO SCH (12:32)
[2023-03-01] MEDS ORDERED: SYSTANE GEL OPHTH DROPS 10 ML EA EYE PRN (13:53)
[2023-03-01] MEDS: Apixaban 5 MG TAB PO SCH ×2 (14:37→20:40)
[2023-03-01] MEDS: Benzonatate 100 MG CAP PO PRN (14:38)
[2023-03-01] MEDS: Atorvastatin Calcium 40 MG TAB PO SCH (20:40)
[2023-03-02] MEDS: Simethicone Chewable 80 MG TAB PO PRN ×2 (02:07→17:41)
[2023-03-02] MEDS: Levothyroxine Sodium 50 MCG TAB PO SCH (06:06)
[2023-03-02] MEDS: Apixaban 5 MG TAB PO SCH ×2 (08:25→20:51)
[2023-03-02] MEDS: Folic Acid 1 MG TAB PO SCH (08:25)
[2023-03-02] MEDS: Gabapentin 100 MG CAP PO SCH (08:25)
[2023-03-02] MEDS: Furosemide 40 MG TAB PO SCH (08:25)
[2023-03-02] MEDS: Dronedarone HCl 400 MG TAB PO SCH ×2 (08:26→18:39)
[2023-03-02] MEDS: Insulin Glargine 30 UNITS/0.3 ML VIAL SC SCH (08:26)
[2023-03-02] MEDS: Cholestyramine/Aspartame 4 gm Packet PO SCH (11:17)
[2023-03-02] MEDS: Insulin Regular 300 UNITS/3 ML VIAL SC PRN ×3 (12:53→20:53)
[2023-03-02] MEDS: Acetaminophen 325 MG TAB PO PRN (17:41)
[2023-03-02] MEDS: Benzonatate 100 MG CAP PO PRN (17:43)
[2023-03-02] MEDS: Atorvastatin Calcium 40 MG TAB PO SCH (20:51)
[2023-03-02] MEDS: Fluticasone Propionate Nasal Spray 16 gm Bottle NASAL SCH (20:55)
[2023-03-03] MEDS: Levothyroxine Sodium 50 MCG TAB PO SCH (05:17)
[2023-03-03] MEDS: Apixaban 5 MG TAB PO SCH ×2 (07:34→20:44)
[2023-03-03] MEDS: Insulin Glargine 30 UNITS/0.3 ML VIAL SC SCH (07:34)
[2023-03-03] MEDS: Furosemide 40 MG TAB PO SCH (07:34)
[2023-03-03] MEDS: Dronedarone HCl 400 MG TAB PO SCH ×2 (07:34→17:13)
[2023-03-03] MEDS: Folic Acid 1 MG TAB PO SCH (07:34)
[2023-03-03] MEDS ORDERED: Heparin 10,000 UNITS/ 10 ML VIAL ONE (08:41)
[2023-03-03] MEDS: Cholestyramine/Aspartame 4 gm Packet PO SCH (11:45)
[2023-03-03] MEDS: Simethicone Chewable 80 MG TAB PO PRN (15:47)
[2023-03-03] MEDS: Fluticasone Propionate Nasal Spray 16 gm Bottle NASAL SCH (17:13)
[2023-03-03] MEDS: Insulin Regular 300 UNITS/3 ML VIAL SC PRN ×2 (17:14→21:11)
[2023-03-03] MEDS: Benzonatate 100 MG CAP PO PRN (17:14)
[2023-03-03] MEDS: Acetaminophen 325 MG TAB PO PRN (20:44)
[2023-03-03] MEDS: Atorvastatin Calcium 40 MG TAB PO SCH (20:44)
[2023-03-04] MEDS: Acetaminophen 325 MG TAB PO PRN (03:29)
[2023-03-04] MEDS: Levothyroxine Sodium 50 MCG TAB PO SCH (05:02)
[2023-03-04] MEDS: Apixaban 5 MG TAB PO SCH (08:03)
[2023-03-04] MEDS: Dronedarone HCl 400 MG TAB PO SCH ×2 (08:03→16:33)
[2023-03-04] MEDS: Furosemide 40 MG TAB PO SCH (08:03)
[2023-03-04] MEDS: Gabapentin 100 MG CAP PO SCH (08:03)
[2023-03-04] MEDS: Folic Acid 1 MG TAB PO SCH (08:03)
[2023-03-04] MEDS: Insulin Glargine 30 UNITS/0.3 ML VIAL SC SCH (08:03)
[2023-03-04] MEDS: Cholestyramine/Aspartame 4 gm Packet PO SCH ×2 (10:15→16:06)
[2023-03-04] MEDS: Fluticasone Propionate Nasal Spray 16 gm Bottle NASAL SCH (16:34)
[2023-03-04 18:09] VITALS: BP 147/82; TEMP 97.8
== END 2023-03-04 18:15 | DRG 291 ==
LOC: ERS 09:57 → 2NO 16:16 → OBSVTOIN 02-25 14:43 → T4-B 02-27 14:29
PROVIDERS: ADMIT Internal Medicine; ATTEND Internal Medicine
DX: I13.2 Hypertensive heart and chronic kidney disease with heart failure and with stage 5 chronic kidney disease, or end stage renal disease (principal); I50.33 Acute on chronic diastolic (congestive) heart failure; N18.6 End stage renal disease; I48.20 Chronic atrial fibrillation, unspecified; E03.9 Hypothyroidism, unspecified; D63.1 Anemia in chronic kidney disease; E11.22 Type 2 diabetes mellitus with diabetic chronic kidney disease; J45.909 Unspecified asthma, uncomplicated; Z88.8 Allergy status to other drugs, medicaments and biological substances; Z99.2 Dependence on renal dialysis; E78.5 Hyperlipidemia, unspecified; E11.69 Type 2 diabetes mellitus with other specified complication; Z79.01 Long term (current) use of anticoagulants; Z79.4 Long term (current) use of insulin; Z79.899 Other long term (current) drug therapy; Z90.49 Acquired absence of other specified parts of digestive tract
CPT/HCPCS: 36415; 36416; 70450; 71045; 80048; 80053; 82550; 82728; 83540; 83550; 83605; 83690; 83735; 83880; 84484; 85025; 90935; 93005; 96374; 96375; G0257; G0378; J1644; J1815; J1940; J2405; J2916; J7050; Q4081

== ENCOUNTER 2023-06-22 15:25 | Outpatient (CLI) | payer MEDICARE ==
[2023-06-22 17:21] LABS: #Eosinphils 0.1 10x3/uL (0.0-0.5); #Monocytes 0.4 10x3/uL (0.0-1.1); #Neutrophils 4.4 10x3/uL (1.5-8.4); %Basophils 0.5 % (0.0-2.0); %Eosinophils 1.5 % (0.0-6.0); %Lymphocytes 18.8 % (18.0-47.0); %Monocytes 6.9 % (0.0-10.0); %Neutrophils 72.1 % (40.0-75.0); Hematocrit 36.4 % (34.9-44.5); Hemoglobin 12.5 g/dL (12.0-15.5); Mean Corpuscular HGB CONC 34.3 g/dL (32.0-36.0); Mean Corpuscular Hemoglobin 34.1 pg (27.0-33.0); Mean Corpuscular Volume 99.2 fl (81.6-98.3); Mean Platelet Volume 11.3 fl (7.4-10.4); Platelet Count 171 10x3/uL (150-450); RBC Distribution Width 14.1 % (11.5-14.5); Red Blood Cell (RBC) Count 3.67 10x6/uL (3.90-5.03); White Blood Cell (WBC) Count 6.1 10x3/uL (3.5-10.5)
[2023-06-22 17:28] LABS: Anion Gap 18 mmol/L (10-20); BUN (Urea Nitrogen) 28 mg/dL (9.8-20.1); Calc. Creatinine Clearance 0 mL/min (70-130); Carbon Dioxide 27 mmol/L (23-31); Chloride 99 mmol/L (98-107); Estimated GFR 23; Glucose 150 mg/dL (83-110); Potassium 4.2 mmol/L (3.5-5.1); Sodium 140 mmol/L (136-145)
== END 2023-06-22 15:26 | disposition home or self-care (01) ==
LOC: LABBT 15:25
PROVIDERS: ATTEND Internal Medicine Cardiovascular Disease
DX: Z01.812 Encounter for preprocedural laboratory examination (principal); I48.19 Other persistent atrial fibrillation
CPT/HCPCS: 80048; 85025

== ENCOUNTER 2023-06-23 06:14 | Day surgery (SDC) | payer MEDICARE ==
[2023-06-22 16:35] VITALS: BMI 35.2
[2023-06-23] MEDS ORDERED: Etomidate 40 MG (20 mL) VIAL ONE (06:54)
[2023-06-23] MEDS ORDERED: Vasopressin 20 UNITS/ML VIAL ONE (06:55)
[2023-06-23] MEDS ORDERED: Lidocaine 1% PF 5 ML VIAL ONE (07:09)
[2023-06-23] MEDS ORDERED: Ondansetron PF 4 MG/2 ML Vial ONE (07:41)
== END 2023-06-23 08:12 | disposition home or self-care (01) ==
LOC: SDC 06:14
PROVIDERS: ATTEND Internal Medicine Cardiovascular Disease
PROC: 5A2204Z Restoration of Cardiac Rhythm, Single (ICD-10-PCS; principal; 2023-06-23)
DX: I48.19 Other persistent atrial fibrillation (principal); I13.0 Hypertensive heart and chronic kidney disease with heart failure and stage 1 through stage 4 chronic kidney disease, or unspecified chronic kidney disease; I50.32 Chronic diastolic (congestive) heart failure; E11.22 Type 2 diabetes mellitus with diabetic chronic kidney disease; N18.4 Chronic kidney disease, stage 4 (severe); E78.2 Mixed hyperlipidemia; K21.9 Gastro-esophageal reflux disease without esophagitis; E66.3 Overweight; Z68.35 Body mass index [BMI] 35.0-35.9, adult; Z79.01 Long term (current) use of anticoagulants; Z79.51 Long term (current) use of inhaled steroids; Z79.899 Other long term (current) drug therapy; Z79.4 Long term (current) use of insulin; Z79.890 Hormone replacement therapy; Z99.2 Dependence on renal dialysis; Z88.8 Allergy status to other drugs, medicaments and biological substances
CPT/HCPCS: 36416; 92960; J2405

== ENCOUNTER 2023-09-26 17:41 | Inpatient (IN) | payer MEDICARE ==
[~2023-09-26 17:41] MED LIST changes: -Heparin 10,000 UNITS/ 10 ML VIAL ONE; +Iopamidol 370 76% 100 ML VIAL ONE; +Vancomycin 250 MG in Sodium Chloride 0.9% 100 ML IVPB SCH; +Vancomycin HCl 750 MG in Sodium Chloride 0.9% 250 ML 250 ML IVPB SCH
[2023-09-26 18:39] VITALS: BMI 36.1
[2023-09-26] MEDS ORDERED: Albuterol 200 PUFF (6.7GM INHALER) INH PRN (19:45)
[2023-09-26] MEDS ORDERED: Benzonatate 100 MG CAP PO PRN (19:45)
[2023-09-26] MEDS ORDERED: Nitroglycerin 0.4 MG TAB (25 Tab Bottle) SL PRN (19:47)
[2023-09-26] MEDS ORDERED: Fluticasone Propionate Nasal Spray 16 gm Bottle NASAL PRN (19:47)
[2023-09-26] MEDS ORDERED: Glucagon 1 MG/ML KIT IM PRN (20:00)
[2023-09-26] MEDS ORDERED: Acetaminophen 325 MG TAB PO PRN (20:00)
[2023-09-26] MEDS ORDERED: Dextrose 50% Abboject 50 ML SYRINGE SLOW IVP PRN (20:00)
[2023-09-26] MEDS ORDERED: Dextrose 5% in Water 1,000 ML IV PRN (20:00)
[2023-09-26] MEDS ORDERED: RisperDAL M 1 MG TAB PO SCH (21:00)
[2023-09-26] MEDS ORDERED: Vancomycin Diaylsis Sliding Scale (Wt 71-99) FS SCH (21:30)
[2023-09-26] MEDS ORDERED: HOLD VANCOMYCIN FOR LEVEL >25 IVP SCH (21:30)
[2023-09-26] MEDS: risperiDONE 1 MG TAB PO SCH (21:32)
[2023-09-26] MEDS: Apixaban 5 MG TAB PO SCH (21:32)
[2023-09-26] MEDS: Atorvastatin Calcium 40 MG TAB PO SCH (21:32)
[2023-09-26] MEDS: Morphine 2 MG/ML VIAL SLOW IVP PRN (22:22)
[2023-09-27 06:32] LABS: #Basophils Less than 0.03 10x3/uL (0.0-0.2); %Basophils 0.3 % (0.0-1.0); %Eosinophils 1.1 % (0.0-10.0); %Lymphocytes 8.7 % (21.0-51.0); %Monocytes 8.2 % (0.0-10.0); %Neutrophils 81.3 % (42.0-75.0); Hematocrit 32.8 % (36.0-47.0); Hemoglobin 10.6 g/dL (12.0-16.0); Mean Corpuscular HGB CONC 32.3 g/dL (32.0-36.0); Mean Corpuscular Hemoglobin 33.4 pg (27.0-31.0); Mean Corpuscular Volume 103.5 fL (78.0-98.0); Mean Platelet Volume 11.1 fL (7.4-10.4); Platelet Count 130 10x3/uL (130-400); RBC Distribution Width 14.2 % (11.5-14.5); Red Blood Cell (RBC) Count 3.17 mill/uL (4.20-5.40)
[2023-09-27 06:54] LABS: Troponin I 0.043 ng/mL (< 0.028)
[2023-09-27 07:05] LABS: Anion Gap 17 mmol/L (10-20); BUN (Urea Nitrogen) 65 mg/dL (9.8-20.1); Calc. Creatinine Clearance 15 mL/min (70-130); Calcium 8.5 mg/dL (7.8-10.44); Carbon Dioxide 22 mmol/L (23-31); Chloride 103 mmol/L (98-107); Estimated GFR 10; Glucose 107 mg/dL (83-110); Potassium 4.1 mmol/L (3.5-5.1); Sodium 138 mmol/L (136-145)
[2023-09-27 07:28] LABS: Vancomycin, Random 27.3 ug/mL (See Comment)
[2023-09-27] MEDS ORDERED: Dronedarone HCl 400 MG TAB PO SCH (08:00)
[2023-09-27] MEDS ORDERED: Vancomycin 1 GM in Premix 1 BAG IVPB SCH ×2 (09:00→17:00)
[2023-09-27] MEDS: Levothyroxine Sodium 50 MCG TAB PO SCH (09:49)
[2023-09-27] MEDS: Folic Acid 1 MG TAB PO SCH (09:49)
[2023-09-27] MEDS: Furosemide 40 MG TAB PO SCH (09:50)
[2023-09-27] MEDS: Pantoprazole DR 40 MG TAB PO SCH (09:50)
[2023-09-27] MEDS: Insulin Glargine 30 UNITS/0.3 ML VIAL SC SCH (09:53)
[2023-09-27] MEDS ORDERED: Heparin 10,000 UNITS/ 10 ML VIAL ONE (10:39)
[2023-09-27] MEDS: Glimepiride 1 MG TAB PO SCH (11:09)
[2023-09-27] MEDS: cefTRIAXone\\ROCEPHIN 1 GM in Sodium Chloride 0.9% 100 ML IVPB SCH (12:19)
[2023-09-27 13:04] LABS: Troponin I 0.038 ng/mL (< 0.028)
[2023-09-27] MEDS: Albumin 25% 25 GM (100 mL) BOT IVPB SCH (16:55)
[2023-09-27] MEDS: Midodrine HCl 5 MG TAB PO SCH (16:56)
[2023-09-27] MEDS ORDERED: Vancomycin (BATCH) 1.25 GM in Premix 1 BAG IVPB SCH (17:00)
[2023-09-28] MEDS: HYDROcodone/Acetaminophen 10/325 mg Tablet PO PRN (01:18)
[2023-09-28 04:44] LABS: Hematocrit 29.5 % (36.0-47.0); Hemoglobin 9.7 g/dL (12.0-16.0); Mean Corpuscular HGB CONC 32.9 g/dL (32.0-36.0); Mean Corpuscular Hemoglobin 34.2 pg (27.0-31.0); Mean Corpuscular Volume 103.9 fL (78.0-98.0); Mean Platelet Volume 10.9 fL (7.4-10.4); Platelet Count 123 10x3/uL (130-400); Red Blood Cell (RBC) Count 2.84 mill/uL (4.20-5.40)
[2023-09-28 05:01] LABS: Anion Gap 16 mmol/L (10-20); BUN (Urea Nitrogen) 28 mg/dL (9.8-20.1); Calc. Creatinine Clearance 26 mL/min (70-130); Calcium 8.7 mg/dL (7.8-10.44); Carbon Dioxide 23 mmol/L (23-31); Chloride 101 mmol/L (98-107); Estimated GFR 19; Glucose 207 mg/dL (83-110); Potassium 3.9 mmol/L (3.5-5.1); Sodium 136 mmol/L (136-145)
[2023-09-28] MEDS: Ondansetron PF 4 MG/2 ML Vial IVP PRN (05:43)
[2023-09-28] MEDS: Amiodarone 200 MG TAB PO SCH (08:58)
[2023-09-28] MEDS: Gabapentin 100 MG CAP PO SCH (10:48)
[2023-09-28] MEDS ORDERED: Piperacillin/Tazobactam 2.25 GM in Sodium Chloride 0.9% 100 ML IVPB SCH (14:00)
[2023-09-28] MEDS: Piperacillin/Tazobactam 3.375 GM in Sodium Chloride 0.9% 100 ML IVPB SCH ×2 (15:14→20:28)
[2023-09-28] MEDS: HumaLOG 300 UNITS/3 ML VIAL SC PRN ×2 (17:41→20:49)
[2023-09-29 04:44] LABS: #Basophils Less than 0.03 10x3/uL (0.0-0.2); %Basophils 0.4 % (0.0-1.0); %Eosinophils 1.8 % (0.0-10.0); %Lymphocytes 11.8 % (21.0-51.0); %Monocytes 8.9 % (0.0-10.0); %Neutrophils 76.7 % (42.0-75.0); Hematocrit 28.9 % (36.0-47.0); Hemoglobin 9.4 g/dL (12.0-16.0); Mean Corpuscular HGB CONC 32.5 g/dL (32.0-36.0); Mean Corpuscular Volume 101.4 fL (78.0-98.0); Mean Platelet Volume 10.9 fL (7.4-10.4); Platelet Count 121 10x3/uL (130-400); RBC Distribution Width 13.7 % (11.5-14.5); Red Blood Cell (RBC) Count 2.85 mill/uL (4.20-5.40)
[2023-09-29 05:34] LABS: Anion Gap 15 mmol/L (10-20); BUN (Urea Nitrogen) 45 mg/dL (9.8-20.1); Calc. Creatinine Clearance 17 mL/min (70-130); Calcium 8.9 mg/dL (7.8-10.44); Carbon Dioxide 24 mmol/L (23-31); Chloride 100 mmol/L (98-107); Estimated GFR 12; Glucose 127 mg/dL (83-110); Potassium 4.3 mmol/L (3.5-5.1); Sodium 135 mmol/L (136-145)
[2023-09-29 07:29] LABS: Vancomycin, Trough 14.9 ug/mL
[2023-09-29 09:10] LABS: Hep C Index 0.17 S/CO (0-0.79)
[2023-09-29 09:35] LABS: HBSAB Concentration 21.61 mIU/mL; HBsAg Index 0.24 S/CO (0-0.99); Hep B Core Total Ab REACTIVE (NonReactive); Hep B Surf AB REACTIVE (NonReactive); Hep B Surf Ag NONREACTIVE S/CO (NonReactive); Hep C IgG Ab NONREACTIVE S/CO (NonReactive)
[2023-09-29] MEDS ORDERED: Heparin 10,000 UNITS/ 10 ML VIAL ONE (09:56)
[2023-09-29] MEDS: Vancomycin 1 GM in Premix 1 BAG IVPB SCH (16:05)
[2023-09-30 04:14] LABS: #Basophils Less than 0.03 10x3/uL (0.0-0.2); %Basophils 0.4 % (0.0-1.0); %Eosinophils 1.5 % (0.0-10.0); %Lymphocytes 11.7 % (21.0-51.0); %Monocytes 11.3 % (0.0-10.0); %Neutrophils 74.9 % (42.0-75.0); Hematocrit 29.3 % (36.0-47.0); Hemoglobin 9.4 g/dL (12.0-16.0); Mean Corpuscular HGB CONC 32.1 g/dL (32.0-36.0); Mean Corpuscular Volume 102.8 fL (78.0-98.0); Mean Platelet Volume 10.9 fL (7.4-10.4); Platelet Count 125 10x3/uL (130-400); RBC Distribution Width 13.6 % (11.5-14.5); Red Blood Cell (RBC) Count 2.85 mill/uL (4.20-5.40)
[2023-09-30 04:33] LABS: Anion Gap 13 mmol/L (10-20); BUN (Urea Nitrogen) 28 mg/dL (9.8-20.1); Calc. Creatinine Clearance 23 mL/min (70-130); Calcium 8.6 mg/dL (7.8-10.44); Carbon Dioxide 26 mmol/L (23-31); Chloride 98 mmol/L (98-107); Estimated GFR 17; Glucose 233 mg/dL (83-110); Potassium 4.1 mmol/L (3.5-5.1); Sodium 133 mmol/L (136-145)
[2023-09-30] MEDS: Lidocaine 1% (PF) 30 ML VIAL SC SCH (08:28)
[2023-09-30 13:02] VITALS: BMI 36.1
[2023-10-01 04:52] LABS: #Basophils Less than 0.03 10x3/uL (0.0-0.2); %Basophils 0.4 % (0.0-1.0); %Eosinophils 1.8 % (0.0-10.0); %Lymphocytes 12.8 % (21.0-51.0); %Monocytes 9.4 % (0.0-10.0); %Neutrophils 75.2 % (42.0-75.0); Hematocrit 29.3 % (36.0-47.0); Hemoglobin 9.4 g/dL (12.0-16.0); Mean Corpuscular HGB CONC 32.1 g/dL (32.0-36.0); Mean Corpuscular Hemoglobin 32.9 pg (27.0-31.0); Mean Corpuscular Volume 102.4 fL (78.0-98.0); Mean Platelet Volume 10.1 fL (7.4-10.4); Platelet Count 125 10x3/uL (130-400); RBC Distribution Width 13.4 % (11.5-14.5); Red Blood Cell (RBC) Count 2.86 mill/uL (4.20-5.40)
[2023-10-01 05:52] LABS: Anion Gap 14 mmol/L (10-20); BUN (Urea Nitrogen) 42 mg/dL (9.8-20.1); Calc. Creatinine Clearance 15 mL/min (70-130); Calcium 9.1 mg/dL (7.8-10.44); Carbon Dioxide 27 mmol/L (23-31); Chloride 99 mmol/L (98-107); Estimated GFR 10; Glucose 194 mg/dL (83-110); Potassium 4.2 mmol/L (3.5-5.1); Sodium 136 mmol/L (136-145)
[2023-10-01 07:59] LABS: Vancomycin, Trough 18.8 ug/mL
[2023-10-01] MEDS: Vancomycin HCl 750 MG in Sodium Chloride 0.9% 250 ML 250 ML IVPB SCH (17:25)
[2023-10-02 04:55] LABS: #Basophils Less than 0.03 10x3/uL (0.0-0.2); %Basophils 0.2 % (0.0-1.0); %Eosinophils 1.6 % (0.0-10.0); %Lymphocytes 12.5 % (21.0-51.0); %Monocytes 7.8 % (0.0-10.0); %Neutrophils 77.5 % (42.0-75.0); Hematocrit 29.4 % (36.0-47.0); Hemoglobin 9.5 g/dL (12.0-16.0); Mean Corpuscular HGB CONC 32.3 g/dL (32.0-36.0); Mean Corpuscular Hemoglobin 33.3 pg (27.0-31.0); Mean Corpuscular Volume 103.2 fL (78.0-98.0); Mean Platelet Volume 10.5 fL (7.4-10.4); Platelet Count 139 10x3/uL (130-400); RBC Distribution Width 13.5 % (11.5-14.5); Red Blood Cell (RBC) Count 2.85 mill/uL (4.20-5.40)
[2023-10-02 05:06] LABS: Anion Gap 13 mmol/L (10-20); BUN (Urea Nitrogen) 20 mg/dL (9.8-20.1); Calc. Creatinine Clearance 24 mL/min (70-130); Calcium 8.8 mg/dL (7.8-10.44); Carbon Dioxide 28 mmol/L (23-31); Chloride 101 mmol/L (98-107); Estimated GFR 18; Glucose 109 mg/dL (83-110); Potassium 4.3 mmol/L (3.5-5.1); Sodium 138 mmol/L (136-145)
[2023-10-02 19:38] VITALS: BP 134/61; TEMP 97.5
[2023-10-02] MEDS: Apixaban 5 MG TAB PO SCH (19:48)
== END 2023-10-02 20:15 | DRG 557 ==
LOC: UNDOADMIN 17:41 → 2NO 17:41
PROVIDERS: ADMIT Internal Medicine; ATTEND Hospitalist
PROC: 0J9N0ZZ Drainage of Right Lower Leg Subcutaneous Tissue and Fascia, Open Approach (ICD-10-PCS; principal; 2023-10-01)
DX: M71.161 Other infective bursitis, right knee (principal); N18.6 End stage renal disease; I48.19 Other persistent atrial fibrillation; L03.115 Cellulitis of right lower limb; I13.2 Hypertensive heart and chronic kidney disease with heart failure and with stage 5 chronic kidney disease, or end stage renal disease; I50.30 Unspecified diastolic (congestive) heart failure; E11.22 Type 2 diabetes mellitus with diabetic chronic kidney disease; E78.5 Hyperlipidemia, unspecified; J45.909 Unspecified asthma, uncomplicated; R07.89 Other chest pain; B95.62 Methicillin resistant Staphylococcus aureus infection as the cause of diseases classified elsewhere; Z79.4 Long term (current) use of insulin; Z79.899 Other long term (current) drug therapy; Z90.49 Acquired absence of other specified parts of digestive tract
CPT/HCPCS: 36415; 36416; 71045; 80048; 80053; 80202; 83605; 84484; 85025; 85027; 86140; 86704; 86706; 86803; 87040; 87070; 87077; 87186; 87205; 87340; 93005; 93010; 96374; 96375; 97139; J0696; J1644; J1815; J2270; J2272; J2405; J2543; J3370; J3370-JW; J3490; J7050; Q9967

== ENCOUNTER 2023-10-22 20:32 | Inpatient (IN) | payer MEDICARE ==
[2023-10-23 01:23] VITALS: BMI 37.8
[2023-10-23] MEDS ORDERED: Acetaminophen 650 MG Suppository PR PRN (02:45)
[2023-10-23] MEDS ORDERED: Ondansetron PF 4 MG/2 ML Vial IVP PRN (02:45)
[2023-10-23] MEDS ORDERED: Nitroglycerin 0.4 MG TAB (25 Tab Bottle) SL PRN (02:47)
[2023-10-23] MEDS ORDERED: Famotidine 20 MG TAB PO PRN (02:47)
[2023-10-23] MEDS ORDERED: Benzonatate 100 MG CAP PO PRN (02:47)
[2023-10-23] MEDS ORDERED: Cholestyramine/Aspartame 4 gm Packet PO PRN (02:47)
[2023-10-23 05:10] LABS: #Basophils Less than 0.03 10x3/uL (0.0-0.2); %Basophils 0.3 % (0.0-1.0); %Eosinophils 1.7 % (0.0-10.0); %Monocytes 8.3 % (0.0-10.0); %Neutrophils 67.4 % (42.0-75.0); Hematocrit 30.2 % (36.0-47.0); Hemoglobin 9.7 g/dL (12.0-16.0); Mean Corpuscular HGB CONC 32.1 g/dL (32.0-36.0); Mean Corpuscular Hemoglobin 34.2 pg (27.0-31.0); Mean Corpuscular Volume 106.3 fL (78.0-98.0); Mean Platelet Volume 10.8 fL (7.4-10.4); Platelet Count 124 10x3/uL (130-400); RBC Distribution Width 14.4 % (11.5-14.5); Red Blood Cell (RBC) Count 2.84 mill/uL (4.20-5.40)
[2023-10-23] MEDS: Levothyroxine Sodium 50 MCG TAB PO SCH (05:43)
[2023-10-23 05:55] LABS: Anion Gap 17 mmol/L (10-20); BUN (Urea Nitrogen) 30 mg/dL (9.8-20.1); Calc. Creatinine Clearance 24 mL/min (70-130); Calcium 8.6 mg/dL (7.8-10.44); Carbon Dioxide 29 mmol/L (23-31); Chloride 99 mmol/L (98-107); Estimated GFR 17; Glucose 110 mg/dL (83-110); Potassium 3.7 mmol/L (3.5-5.1); Sodium 141 mmol/L (136-145)
[2023-10-23 05:59] LABS: Hemoglobin A1c 6.9 % (4.0-6.0)
[2023-10-23] MEDS: Folic Acid 1 MG TAB PO SCH (08:54)
[2023-10-23] MEDS: Pantoprazole DR 40 MG TAB PO SCH (08:54)
[2023-10-23] MEDS: Amiodarone 200 MG TAB PO SCH (08:54)
[2023-10-23] MEDS: Apixaban 5 MG TAB PO SCH (08:54)
[2023-10-23] MEDS: Furosemide 40 MG TAB PO SCH (08:54)
[2023-10-23] MEDS: Famotidine 20 MG TAB PO SCH (08:54)
[2023-10-23] MEDS: Insulin Glargine 30 UNITS/0.3 ML VIAL SC SCH (08:55)
[2023-10-23] MEDS: Famotidine/PF 20 mg/2ml Vial SLOW IVP SCH (09:02)
[2023-10-23] MEDS: Acetaminophen 325 MG TAB PO PRN (10:20)
[2023-10-23] MEDS: Atorvastatin Calcium 40 MG TAB PO SCH (20:30)
[2023-10-23] MEDS: Ondansetron ODT 4 MG TAB PO PRN (20:30)
[2023-10-24] MEDS: Gabapentin 100 MG CAP PO SCH (09:20)
[2023-10-24 20:15] LABS: Bacteria/HPF 4+ HPF (None Seen); Bilirubin Negative (Negative); Blood, Urine 1+ (Negative); Clarity Turbid (Clear); Glucose, Urine (Dipstick) Normal (Negative); Ketone, Urine Negative (Negative); Leukocyte 500 Leu/uL (Negative); Nitrite Negative (Negative); Protein, Urine (Dipstick) 100 mg/dL (Neg-Trace); Renal Epithelial 0-3 HPF (None Seen); Specific Gravity, Urine 1.015 (1.002-1.036); Urobilinogen Normal mg/dL (Less than 2); WBC/HPF Greater than 50 HPF (0-3); Yeast-Budding 1+ HPF (None Seen)
[2023-10-25] MEDS ORDERED: Heparin 10,000 UNITS/ 10 ML VIAL ONE (09:57)
[2023-10-25] MEDS: NIFEdipine XL 90 MG ER.TAB PO SCH (13:39)
[2023-10-25] MEDS: Morphine 4 MG/ML VIAL SLOW IVP SCH (15:45)
[2023-10-25] MEDS: hydrALAZINE 20 MG/ML VIAL SLOW IVP SCH (15:46)
[2023-10-26 08:50] VITALS: TEMP 98.1
[2023-10-26 17:47] VITALS: BP 152/75
== END 2023-10-26 18:38 | disposition home or self-care (01) | DRG 312 ==
LOC: 2SW 20:32 → OBSVTOIN 10-25 09:03 → T4-A 10-25 21:04
PROVIDERS: ADMIT Student in an Organized Health Care Education/Training Program; ATTEND Internal Medicine
DX: I95.3 Hypotension of hemodialysis (principal); N18.6 End stage renal disease; I12.0 Hypertensive chronic kidney disease with stage 5 chronic kidney disease or end stage renal disease; E11.649 Type 2 diabetes mellitus with hypoglycemia without coma; E11.22 Type 2 diabetes mellitus with diabetic chronic kidney disease; I48.91 Unspecified atrial fibrillation; J45.909 Unspecified asthma, uncomplicated; E66.9 Obesity, unspecified; W19.XXXA Unspecified fall, initial encounter; E78.5 Hyperlipidemia, unspecified; Z99.2 Dependence on renal dialysis; Z88.8 Allergy status to other drugs, medicaments and biological substances; Z79.890 Hormone replacement therapy; Z98.890 Other specified postprocedural states; Z79.4 Long term (current) use of insulin; Z90.49 Acquired absence of other specified parts of digestive tract; Z98.49 Cataract extraction status, unspecified eye; Z79.01 Long term (current) use of anticoagulants; R77.8 Other specified abnormalities of plasma proteins; R53.1 Weakness; E03.9 Hypothyroidism, unspecified; Z79.899 Other long term (current) drug therapy; Z79.84 Long term (current) use of oral hypoglycemic drugs
CPT/HCPCS: 36415; 36416; 51701; 70450; 80048; 80053; 81001; 83036; 84484; 85025; 87086; 93005; 93010; 94760; 96361; 96372; 96374; 96375; 97139; G0378; J0360; J1644; J1815; J2270; J2405; J7999; Q0162

== ENCOUNTER 2023-11-23 07:08 | Day surgery (SDC) | payer MEDICARE ==
[2023-11-22 13:11] VITALS: BMI 36.1
[2023-11-23] MEDS ORDERED: Etomidate 40 MG (20 mL) VIAL ONE (08:27)
[2023-11-23 08:31] LABS: #Basophils Less than 0.03 10x3/uL (0.0-0.2); %Basophils 0.3 % (0.0-1.0); %Eosinophils 0.8 % (0.0-10.0); %Lymphocytes 13.1 % (21.0-51.0); %Monocytes 9.2 % (0.0-10.0); %Neutrophils 76.3 % (42.0-75.0); Hematocrit 30.8 % (36.0-47.0); Hemoglobin 9.9 g/dL (12.0-16.0); Mean Corpuscular HGB CONC 32.1 g/dL (32.0-36.0); Mean Corpuscular Hemoglobin 34.7 pg (27.0-31.0); Mean Corpuscular Volume 108.1 fL (78.0-98.0); Mean Platelet Volume 10.9 fL (7.4-10.4); Platelet Count 142 10x3/uL (130-400); RBC Distribution Width 15.1 % (11.5-14.5); Red Blood Cell (RBC) Count 2.85 mill/uL (4.20-5.40)
[2023-11-23 08:44] LABS: Anion Gap 16 mmol/L (10-20); BUN (Urea Nitrogen) 45 mg/dL (9.8-20.1); Calc. Creatinine Clearance 17 mL/min (70-130); Calcium 9.1 mg/dL (7.8-10.44); Carbon Dioxide 27 mmol/L (23-31); Chloride 104 mmol/L (98-107); Estimated GFR 12; Glucose 197 mg/dL (83-110); Potassium 4.1 mmol/L (3.5-5.1); Sodium 143 mmol/L (136-145)
[2023-11-23] MEDS ORDERED: fentaNYL 50 mcg/mL 1 mL Vial ONE (09:07)
[2023-11-23] MEDS ORDERED: PROPOFOL 200 MG/20 ML VIAL ONE (09:46)
== END 2023-11-23 11:00 | disposition home or self-care (01) ==
LOC: SDC 07:08
PROVIDERS: ATTEND Internal Medicine Cardiovascular Disease
PROC: 5A2204Z Restoration of Cardiac Rhythm, Single (ICD-10-PCS; principal; 2023-11-23)
PROC: B246ZZ4 Ultrasonography of Right and Left Heart, Transesophageal (ICD-10-PCS; 2023-11-23)
DX: I48.19 Other persistent atrial fibrillation (principal); I08.1 Rheumatic disorders of both mitral and tricuspid valves; E11.22 Type 2 diabetes mellitus with diabetic chronic kidney disease; I13.0 Hypertensive heart and chronic kidney disease with heart failure and stage 1 through stage 4 chronic kidney disease, or unspecified chronic kidney disease; I50.32 Chronic diastolic (congestive) heart failure; N18.4 Chronic kidney disease, stage 4 (severe); E78.00 Pure hypercholesterolemia, unspecified; E78.2 Mixed hyperlipidemia; K21.9 Gastro-esophageal reflux disease without esophagitis; Z79.4 Long term (current) use of insulin; Z79.899 Other long term (current) drug therapy; Z88.8 Allergy status to other drugs, medicaments and biological substances; Z79.01 Long term (current) use of anticoagulants
CPT/HCPCS: 80048; 82962; 85025; 92960; 93005; 93312; J2704; J3010; 36416; 93010

== ENCOUNTER 2023-11-24 08:56 | Emergency (ER) | payer MEDICARE ==
[2023-11-24 09:44] LABS: #Basophils Less than 0.03 10x3/uL (0.0-0.2); %Basophils 0.3 % (0.0-1.0); %Eosinophils 1.3 % (0.0-10.0); %Lymphocytes 9.5 % (21.0-51.0); %Monocytes 5.9 % (0.0-10.0); %Neutrophils 82.7 % (42.0-75.0); Hematocrit 30.4 % (36.0-47.0); Hemoglobin 9.7 g/dL (12.0-16.0); Mean Corpuscular HGB CONC 31.9 g/dL (32.0-36.0); Mean Corpuscular Hemoglobin 33.7 pg (27.0-31.0); Mean Corpuscular Volume 105.6 fL (78.0-98.0); Mean Platelet Volume 10.9 fL (7.4-10.4); Platelet Count 130 10x3/uL (130-400); Red Blood Cell (RBC) Count 2.88 mill/uL (4.20-5.40)
[2023-11-24 09:55] LABS: ALT (SGPT) 11 U/L (8-55); AST (SGOT) 12 U/L (5-34); Albumin 3.4 g/dL (3.4-4.8); Alkaline Phosphatase 72 U/L (40-110); Anion Gap 17 mmol/L (10-20); BUN (Urea Nitrogen) 60 mg/dL (9.8-20.1); Bilirubin, Total 0.9 mg/dL (0.2-1.2); Calc. Creatinine Clearance 0 mL/min (70-130); Calcium 8.9 mg/dL (7.8-10.44); Carbon Dioxide 25 mmol/L (23-31); Chloride 104 mmol/L (98-107); Estimated GFR 11; Glucose 188 mg/dL (83-110); Potassium 4.1 mmol/L (3.5-5.1); Protein, Total 6.4 g/dL (5.8-8.1); Sodium 142 mmol/L (136-145)
== END 2023-11-24 18:00 | disposition home or self-care (01) ==
LOC: ERS 08:56
DX: N17.9 Acute kidney failure, unspecified (principal); I13.2 Hypertensive heart and chronic kidney disease with heart failure and with stage 5 chronic kidney disease, or end stage renal disease; E11.22 Type 2 diabetes mellitus with diabetic chronic kidney disease; N18.6 End stage renal disease; I50.9 Heart failure, unspecified; I48.91 Unspecified atrial fibrillation; Z99.2 Dependence on renal dialysis
CPT/HCPCS: 71045; 80053; 82962; 83735; 83880; 85025; 92960; 93005; 94760; 96374; 99285; J1940; 36415; 36416; 90935; G0257; J1644